=== PATIENT | male | born 1945 | race Caucasian/White ===

== ENCOUNTER 2022-01-09 10:54 | Inpatient (IN) ==
[2022-01-09] MEDS ORDERED: DOCUSATE SODIUM 100 MG CAPSULE PO PRN (11:27)
[2022-01-09] MEDS ORDERED: MAGNESIUM SULF RIDER 4 GM/100 ML PREMIX IV PRN (11:27)
[2022-01-09] MEDS ORDERED: ACETAMINOPHEN 325 MG TABLET PO PRN (11:27)
[2022-01-09] MEDS ORDERED: ZALEPLON 5 MG CAPSULE PO PRN (11:27)
[2022-01-09] MEDS ORDERED: POTASSIUM CHLORIDE 20 MEQ TABLET PO PRN (11:27)
[2022-01-09] MEDS ORDERED: ONDANSETRON 4 MG/2 ML VIAL IV PRN (11:27)
[2022-01-09] MEDS ORDERED: hydrALAZINE 20 MG/1 ML VIAL IV PRN (11:27)
[2022-01-09] MEDS ORDERED: ALUMINUM/MAGNES/SIMETH MAX STR 30 ML UDCUP PO PRN (11:27)
[2022-01-09] MEDS ORDERED: MAGNESIUM SULF RIDER 2 GM/50 ML PREMIX IV PRN (11:27)
[2022-01-09] MEDS ORDERED: AMIODARONE INJ 450 MG in DEXTROSE 5% 241 ML IV SCH ×2 (12:00→18:00)
[2022-01-09 14:13] LABS: Basophils % 0.4 % (0.0-0.8); Eosinophils # 0.1 10*3/uL (0.0-0.87); Eosinophils % 0.6 % (0.00-10.9); Hemoglobin 11.7 GM/DL (14.0-18.0); Immature Granulocytes % 0.5 %; Immature Granulocytes Absolute 0.04 #; Lymphocytes # 1.1 10*3/uL (1.4-4.0); Lymphocytes % 14.2 % (21.2-54.2); Mean Corpuscular HGB Conc 33.4 GM/DL (32-36); Mean Corpuscular Volume 95.4 FL (87-102); Mean Platelet Volume 10.6 FL (9.6-12.0); Monocytes # 0.6 10*3/uL (0.11-0.8); Monocytes % 8.3 % (1.7-12.7); Platelet Count 203 T/CUMM (130-400); Red Blood Count 3.67 MC/CUMM (3.8-5.5); Red Cell Distribution Width 13.1 % (9.3-17.3); White Blood Count 7.8 T/CUMM (4-12)
[2022-01-09] MEDS: SODIUM CHLORIDE 0.9% 1,000 ML IV SCH (14:16)
[2022-01-09 14:32] LABS: Albumin 3.3 G/DL (3.4-5.0); Bilirubin,Total 0.7 MG/DL (0.20-1.00); Calcium 9.1 MG/DL (8.5-10.1); Osmolality,Calculated 283.3 MOS/KG (273-304); Potassium 3.7 MMOL/L (3.5-5.1); Total Protein 7.4 G/DL (6.4-8.2)
[2022-01-09 14:38] LABS: Thyroid Stimulating Hormone 10.5 uIU/ml (0.358-3.74)
[2022-01-09] MEDS ORDERED: METOPROLOL TARTRATE 5 MG/5 ML VIAL IV PRN (14:45)
[2022-01-09] MEDS ORDERED: MAGNESIUM SULF RIDER 2 GM/50 ML PREMIX IV ONE (14:46)
[2022-01-09] MEDS ORDERED: POTASSIUM CHLORIDE 20 MEQ TABLET PO ONE (14:46)
[2022-01-09] MEDS: FAMOTIDINE 20 MG TABLET PO SCH (20:51)
[2022-01-10 03:53] LABS: Basophils % 0.6 % (0.0-0.8); Eosinophils # 0.2 10*3/uL (0.0-0.87); Eosinophils % 3.5 % (0.00-10.9); Hematocrit 27.5 VOL% (42.0-52.0); Hemoglobin 9.1 GM/DL (14.0-18.0); Immature Granulocytes % 0.2 %; Immature Granulocytes Absolute 0.01 #; Lymphocytes # 1.4 10*3/uL (1.4-4.0); Lymphocytes % 29.9 % (21.2-54.2); Mean Corpuscular HGB Conc 33.1 GM/DL (32-36); Mean Corpuscular Volume 96.2 FL (87-102); Mean Platelet Volume 10.5 FL (9.6-12.0); Monocytes # 0.5 10*3/uL (0.11-0.8); Monocytes % 10.4 % (1.7-12.7); Neutrophils % 55.4 % (38.7-73.9); Platelet Count 158 T/CUMM (130-400); Red Blood Count 2.86 MC/CUMM (3.8-5.5); Red Cell Distribution Width 12.9 % (9.3-17.3); White Blood Count 4.8 T/CUMM (4-12)
[2022-01-10 04:10] LABS: Calcium 8.5 MG/DL (8.5-10.1); Osmolality,Calculated 284.1 MOS/KG (273-304)
[2022-01-10 04:14] LABS: Risk Ratio 2.58; VLDL Cholesterol 13.6 MG/DL
[2022-01-10] MEDS: LEVOTHYROXINE 25 MCG TABLET PO SCH (06:01)
[2022-01-10] MEDS ORDERED: POLYETHYLENE GLYCOL POWDER 17 GM PACK PO SCH (08:00)
[2022-01-10] MEDS ORDERED: LORATADINE 10 MG TABLET PO SCH (08:00)
[2022-01-10] MEDS ORDERED: TAMSULOSIN 0.4 MG CAPSULE PO SCH (08:00)
[2022-01-10] MEDS ORDERED: PANTOPRAZOLE 40 MG TABLET PO SCH (09:00)
[2022-01-10] MEDS ORDERED: METOPROLOL SUCCINATE XL 25 MG TABLET PO SCH (09:00)
[2022-01-10] MEDS: FAMOTIDINE 20 MG TABLET PO SCH ×2 (10:08→20:38)
[2022-01-10] MEDS: SODIUM CHLORIDE 0.9% 1,000 ML IV SCH (10:14)
[2022-01-11 04:38] LABS: Basophils % 0.5 % (0.0-0.8); Eosinophils # 0.2 10*3/uL (0.0-0.87); Eosinophils % 3.3 % (0.00-10.9); Hematocrit 28.4 VOL% (42.0-52.0); Hemoglobin 9.5 GM/DL (14.0-18.0); Immature Granulocytes % 0.5 %; Immature Granulocytes Absolute 0.03 #; Lymphocytes # 1.3 10*3/uL (1.4-4.0); Lymphocytes % 23.2 % (21.2-54.2); Mean Corpuscular HGB Conc 33.5 GM/DL (32-36); Mean Platelet Volume 10.2 FL (9.6-12.0); Monocytes # 0.6 10*3/uL (0.11-0.8); Monocytes % 10.1 % (1.7-12.7); Neutrophils % 62.4 % (38.7-73.9); Platelet Count 164 T/CUMM (130-400); Red Blood Count 2.99 MC/CUMM (3.8-5.5); Red Cell Distribution Width 12.8 % (9.3-17.3); White Blood Count 5.5 T/CUMM (4-12)
[2022-01-11 04:58] LABS: Calcium 8.5 MG/DL (8.5-10.1); Osmolality,Calculated 274.7 MOS/KG (273-304); Potassium 3.6 MMOL/L (3.5-5.1)
[2022-01-11] MEDS: LEVOTHYROXINE 25 MCG TABLET PO SCH (06:01)
[2022-01-11 07:25] LABS: Folate 10.07 NG/ML (5.38-24.0); Vitamin B12 151 PG/ML (211-911)
[2022-01-11 07:47] LABS: Basophils % 0.6 % (0.0-0.8); Eosinophils # 0.2 10*3/uL (0.0-0.87); Eosinophils % 3.4 % (0.00-10.9); Hematocrit 29.2 VOL% (42.0-52.0); Hemoglobin 9.9 GM/DL (14.0-18.0); Immature Granulocytes % 0.4 %; Immature Granulocytes Absolute 0.02 #; Lymphocytes # 1.1 10*3/uL (1.4-4.0); Lymphocytes % 23.5 % (21.2-54.2); Mean Corpuscular HGB Conc 33.9 GM/DL (32-36); Mean Corpuscular Volume 94.8 FL (87-102); Mean Platelet Volume 9.9 FL (9.6-12.0); Monocytes # 0.4 10*3/uL (0.11-0.8); Monocytes % 8.4 % (1.7-12.7); Neutrophils % 63.7 % (38.7-73.9); Platelet Count 166 T/CUMM (130-400); Red Blood Count 3.08 MC/CUMM (3.8-5.5); Red Cell Distribution Width 12.8 % (9.3-17.3); White Blood Count 4.8 T/CUMM (4-12)
[2022-01-11] MEDS ORDERED: FERROUS SULFATE 325 MG TABLET PO SCH (09:00)
[2022-01-11] MEDS ORDERED: METOPROLOL SUCCINATE XL 50 MG TABLET PO SCH (09:00)
[2022-01-11] MEDS ORDERED: LOSARTAN 25 MG TABLET PO SCH (09:00)
[2022-01-11] MEDS ORDERED: CYANOCOBALAMIN 500 MCG TABLET PO SCH (09:00)
[2022-01-11 09:03] LABS: Sedimentation Rate-Westergren 58 MM/HR (0-20)
[2022-01-11 11:42] VITALS: BP 122/74
[2022-01-14 09:18] LABS: Hemoglobin A1 (Alkaline) 96.9 % (96.5-98.5); Hemoglobin A2 (Alkaline) 3.1 % (1.5-3.5)
== END 2022-01-11 12:50 | DRG 988 ==
LOC: N.TELEN 12:04 → N.TELES 13:23 → N.TELEN 13:43
PROVIDERS: ADMIT Internal Medicine Cardiovascular Disease; ATTEND Internal Medicine Cardiovascular Disease

== ENCOUNTER 2022-02-20 05:47 | Inpatient (IN) ==
[2022-02-20] MEDS ORDERED: ALVIMOPAN 12 MG CAPSULE PO ONE (06:00)
[2022-02-20] MEDS ORDERED: MIDAZOLAM 2 MG/2 ML VIAL ONE (06:13)
[2022-02-20] MEDS ORDERED: LIDOCAINE 2% 5 ML VIAL ONE (06:13)
[2022-02-20] MEDS ORDERED: propofoL 200 MG/20 ML VIAL IV ONE (06:13)
[2022-02-20] MEDS ORDERED: ROCURONIUM 50 MG/5 ML VIAL IV ONE ×2 (06:13→08:21)
[2022-02-20] MEDS ORDERED: fentaNYL 100 MCG/2 ML VIAL ONE ×2 (06:13→10:16)
[2022-02-20 06:30] LABS: Basophils % 0.6 % (0.0-0.8); Eosinophils # 0.3 10*3/uL (0.0-0.87); Eosinophils % 5.9 % (0.00-10.9); Hematocrit 32.4 VOL% (42.0-52.0); Hemoglobin 10.6 GM/DL (14.0-18.0); Immature Granulocytes % 0.4 %; Immature Granulocytes Absolute 0.02 #; Lymphocytes # 1.5 10*3/uL (1.4-4.0); Lymphocytes % 29.7 % (21.2-54.2); Mean Corpuscular HGB Conc 32.7 GM/DL (32-36); Mean Corpuscular Volume 97.6 FL (87-102); Mean Platelet Volume 10.1 FL (9.6-12.0); Monocytes # 0.5 10*3/uL (0.11-0.8); Monocytes % 9.6 % (1.7-12.7); Neutrophils % 53.8 % (38.7-73.9); Platelet Count 160 T/CUMM (130-400); Red Blood Count 3.32 MC/CUMM (3.8-5.5); Red Cell Distribution Width 13.2 % (9.3-17.3); White Blood Count 5.1 T/CUMM (4-12)
[2022-02-20 06:48] LABS: Osmolality,Calculated 275.7 MOS/KG (273-304); Potassium 3.7 MMOL/L (3.5-5.1)
[2022-02-20 06:51] LABS: Glucose,Urine (UA) Negative (Negative); Hyaline Casts,Urine 27 /LPF (0-3); Ketones,Urine Negative (Negative); Mucus,Urine Few /LPF (Occasional); Nitrite,Urine Positive (Negative); Protein,Urine 100 mg/dL (Negative); RBC,Urine 143 /HPF (0-4); Squamous Epithelial Cell,Urine Occasional /HPF (0-10); Urine Appearance Cloudy (Clear); Urine Color Yellow (Yellow); Urine Specific Gravity 1.025 (1.001-1.035)
[2022-02-20 06:52] LABS: Bilirubin,Urine Negative (Negative); Blood, Urine Large mg/dL (Negative)
[2022-02-20] MEDS ORDERED: cefTRIAXone 1,000 MG in SODIUM CHLORIDE 0.9% 100 ML IV ONE (06:55)
[2022-02-20] MEDS ORDERED: cefTRIAXone 1,000 MG VIAL ONE (06:56)
[2022-02-20] MEDS ORDERED: LACTATED RINGERS 1,000 ML IV SCH (07:00)
[2022-02-20] MEDS ORDERED: PHENYLEPHRINE 10 MG/1 ML VIAL IV ONE ×2 (07:49→09:47)
[2022-02-20] MEDS ORDERED: ePHEDrine 50 MG/ML VIAL ONE (08:12)
[2022-02-20] MEDS ORDERED: LACTATED RINGERS 1,000 ML IV ONE (08:22)
[2022-02-20 08:46] LABS: Bilirubin,Urine Negative (Negative); Blood, Urine Small mg/dL (Negative); Glucose,Urine (UA) Negative (Negative); Ketones,Urine Negative (Negative); Mucus,Urine Occasional /LPF (Occasional); Nitrite,Urine Positive (Negative); Protein,Urine Negative (Negative); RBC,Urine 7 /HPF (0-4); Urine Appearance Cloudy (Clear); Urine Color Yellow (Yellow); Urine pH 6.5 (4.5-8.0)
[2022-02-20] MEDS ORDERED: SUGAMMADEX 200 MG/2 ML VIAL IV ONE (10:27)
[2022-02-20] MEDS ORDERED: SODIUM CHLORIDE 0.9% 250 ML IV ONE (10:35)
[2022-02-20] MEDS ORDERED: SEVOFLURANE 1 UNIT/15 MINUTE INH ONE ×12 (10:44→10:59)
[2022-02-20] MEDS ORDERED: ESMOLOL 100 MG/10 ML VIAL IV ONE (10:44)
[2022-02-20] MEDS ORDERED: ONDANSETRON 4 MG/2 ML VIAL IV PRN ×2 (10:47→12:07)
[2022-02-20] MEDS ORDERED: ALBUMIN 5% 12.5 GM/250 ML VIAL IV ONE ×2 (11:19→12:14)
[2022-02-20] MEDS ORDERED: ACETAMINOPHEN INJ 1,000 MG/100 ML VIAL IV ONE ×2 (11:28→12:14)
[2022-02-20] MEDS ORDERED: MEPERIDINE 25 MG/1 ML VIAL ONE (11:50)
[2022-02-20] MEDS: MEPERIDINE 25 MG/1 ML VIAL IV PRN ×2 (11:55→16:35)
[2022-02-20] MEDS ORDERED: PROMETHAZINE INJ 25 MG in SODIUM CHLORIDE 0.9% 50 ML IV PRN (12:07)
[2022-02-20] MEDS ORDERED: HYDROmorphone 1 MG/1 ML SYRINGE IV PRN (12:07)
[2022-02-20] MEDS ORDERED: MORPHINE 10 MG/1 ML VIAL IV PRN (12:07)
[2022-02-20] MEDS ORDERED: diphenhydrAMINE 50 MG/1 ML VIAL IV PRN (12:07)
[2022-02-20 12:57] LABS: Basophils % 0.3 % (0.0-0.8); Eosinophils # 0.1 10*3/uL (0.0-0.87); Eosinophils % 0.5 % (0.00-10.9); Hematocrit 24.8 VOL% (42.0-52.0); Hemoglobin 8.1 GM/DL (14.0-18.0); Immature Granulocytes % 0.5 %; Immature Granulocytes Absolute 0.05 #; Lymphocytes # 0.9 10*3/uL (1.4-4.0); Lymphocytes % 8.9 % (21.2-54.2); Mean Corpuscular HGB Conc 32.7 GM/DL (32-36); Mean Corpuscular Volume 99.2 FL (87-102); Mean Platelet Volume 10.3 FL (9.6-12.0); Monocytes # 0.1 10*3/uL (0.11-0.8); Monocytes % 0.7 % (1.7-12.7); Neutrophils % 89.1 % (38.7-73.9); Platelet Count 124 T/CUMM (130-400); Red Cell Distribution Width 13.3 % (9.3-17.3); White Blood Count 9.5 T/CUMM (4-12)
[2022-02-20] MEDS: SODIUM CHLORIDE 0.45% 1,000 ML IV SCH ×3 (13:08→23:48)
[2022-02-20 13:12] LABS: Band Neutrophils 12 % (0-10); Lymphocytes 11 % (20-55); Myelocytes 1 %; Total Cells Counted 100
[2022-02-20 13:13] LABS: Platelet Estimate Decreased
[2022-02-20] MEDS ORDERED: PHENYLEPHRINE DRIP 40 MG/250 ML PREMIX IV ONE (13:28)
[2022-02-20] MEDS: PHENYLEPHRINE DRIP 40 MG/250 ML PREMIX IV PRN ×2 (13:30→20:25)
[2022-02-20] MEDS ORDERED: DOCUSATE/SENNA 50-8.6 MG TABLET PO PRN (14:15)
[2022-02-20] MEDS: FAMOTIDINE 20 MG TABLET PO SCH (20:28)
[2022-02-21] MEDS: PHENYLEPHRINE DRIP 40 MG/250 ML PREMIX IV PRN ×3 (02:05→19:02)
[2022-02-21] MEDS: MEPERIDINE 25 MG/1 ML VIAL IV PRN ×2 (02:10→15:55)
[2022-02-21 04:36] LABS: Basophils % 0.2 % (0.0-0.8); Eosinophils % 0.2 % (0.00-10.9); Hematocrit 23.9 VOL% (42.0-52.0); Hemoglobin 7.7 GM/DL (14.0-18.0); Immature Granulocytes % 0.7 %; Immature Granulocytes Absolute 0.09 #; Lymphocytes # 1.5 10*3/uL (1.4-4.0); Lymphocytes % 11.2 % (21.2-54.2); Mean Corpuscular HGB Conc 32.2 GM/DL (32-36); Mean Platelet Volume 10.3 FL (9.6-12.0); Monocytes # 1.1 10*3/uL (0.11-0.8); Monocytes % 7.8 % (1.7-12.7); Neutrophils % 79.9 % (38.7-73.9); Platelet Count 142 T/CUMM (130-400); Red Blood Count 2.39 MC/CUMM (3.8-5.5); Red Cell Distribution Width 13.5 % (9.3-17.3); White Blood Count 13.5 T/CUMM (4-12)
[2022-02-21 04:47] LABS: Osmolality,Calculated 279.4 MOS/KG (273-304); Potassium 4.1 MMOL/L (3.5-5.1)
[2022-02-21 05:13] LABS: Free T4 (Free Thyroxine) 1.35 NG/DL (0.76-1.46); Thyroid Stimulating Hormone 3.67 uIU/ml (0.358-3.74)
[2022-02-21] MEDS: LEVOTHYROXINE 25 MCG TABLET PO SCH (06:26)
[2022-02-21] MEDS: SODIUM CHLORIDE 0.45% 1,000 ML IV SCH ×3 (06:49→21:10)
[2022-02-21] MEDS ORDERED: LOSARTAN 25 MG TABLET PO SCH (08:00)
[2022-02-21] MEDS ORDERED: SODIUM CHLORIDE 0.9% 1,000 ML IV PRN (09:06)
[2022-02-21] MEDS: TAMSULOSIN 0.4 MG CAPSULE PO SCH (10:47)
[2022-02-21] MEDS: POLYETHYLENE GLYCOL POWDER 17 GM PACK PO SCH (10:48)
[2022-02-21] MEDS: FAMOTIDINE 20 MG TABLET PO SCH ×2 (10:48→21:09)
[2022-02-21] MEDS: LORATADINE 10 MG TABLET PO SCH (10:48)
[2022-02-21] MEDS: CYANOCOBALAMIN 500 MCG TABLET PO SCH (10:48)
[2022-02-21] MEDS: METOPROLOL SUCCINATE XL 50 MG TABLET PO SCH (10:56)
[2022-02-21] MEDS: cefTRIAXone 1,000 MG in SODIUM CHLORIDE 0.9% 100 ML IV SCH (21:09)
[2022-02-22] MEDS: PHENYLEPHRINE DRIP 40 MG/250 ML PREMIX IV PRN ×2 (04:56→18:22)
[2022-02-22 05:06] LABS: Basophils % 0.3 % (0.0-0.8); Eosinophils # 0.1 10*3/uL (0.0-0.87); Eosinophils % 0.8 % (0.00-10.9); Hematocrit 21.7 VOL% (42.0-52.0); Hemoglobin 7.3 GM/DL (14.0-18.0); Immature Granulocytes % 0.4 %; Immature Granulocytes Absolute 0.04 #; Lymphocytes # 1.5 10*3/uL (1.4-4.0); Lymphocytes % 13.8 % (21.2-54.2); Mean Corpuscular HGB Conc 33.6 GM/DL (32-36); Mean Platelet Volume 10.6 FL (9.6-12.0); Monocytes # 0.9 10*3/uL (0.11-0.8); Monocytes % 8.8 % (1.7-12.7); Neutrophils % 75.9 % (38.7-73.9); Platelet Count 118 T/CUMM (130-400); Red Blood Count 2.26 MC/CUMM (3.8-5.5); Red Cell Distribution Width 14.3 % (9.3-17.3); White Blood Count 10.5 T/CUMM (4-12)
[2022-02-22] MEDS: LEVOTHYROXINE 25 MCG TABLET PO SCH (05:52)
[2022-02-22] MEDS: POLYETHYLENE GLYCOL POWDER 17 GM PACK PO SCH (08:31)
[2022-02-22] MEDS: CYANOCOBALAMIN 500 MCG TABLET PO SCH (08:31)
[2022-02-22] MEDS: TAMSULOSIN 0.4 MG CAPSULE PO SCH (08:31)
[2022-02-22] MEDS: FAMOTIDINE 20 MG TABLET PO SCH ×2 (08:31→20:31)
[2022-02-22] MEDS: METOPROLOL SUCCINATE XL 50 MG TABLET PO SCH ×2 (08:31→13:40)
[2022-02-22] MEDS: LORATADINE 10 MG TABLET PO SCH (08:31)
[2022-02-22] MEDS: SODIUM CHLORIDE 0.45% 1,000 ML IV SCH (09:25)
[2022-02-22] MEDS: MEPERIDINE 25 MG/1 ML VIAL IV PRN (13:49)
[2022-02-22] MEDS ORDERED: ADENOSINE 6 MG/2 ML VIAL ONE (14:31)
[2022-02-22] MEDS ORDERED: AMIODARONE INJ 150 MG in DEXTROSE 5% 100 ML IV ONE (14:35)
[2022-02-22] MEDS ORDERED: AMIODARONE 150 MG/3 ML VIAL ONE (14:35)
[2022-02-22] MEDS ORDERED: AMIODARONE INJ 450 MG in DEXTROSE 5% 241 ML IV SCH ×2 (15:00→21:00)
[2022-02-22 16:48] LABS: Hematocrit 25.5 VOL% (42.0-52.0); Hemoglobin 8.3 GM/DL (14.0-18.0)
[2022-02-22] MEDS: cefTRIAXone 1,000 MG in SODIUM CHLORIDE 0.9% 100 ML IV SCH (20:31)
[2022-02-23] MEDS: SODIUM CHLORIDE 0.45% 1,000 ML IV SCH ×3 (02:25→15:06)
[2022-02-23 05:06] LABS: Basophils % 0.3 % (0.0-0.8); Eosinophils # 0.3 10*3/uL (0.0-0.87); Eosinophils % 3.4 % (0.00-10.9); Hematocrit 25.9 VOL% (42.0-52.0); Hemoglobin 8.5 GM/DL (14.0-18.0); Immature Granulocytes % 0.4 %; Immature Granulocytes Absolute 0.03 #; Lymphocytes # 1.6 10*3/uL (1.4-4.0); Lymphocytes % 20.9 % (21.2-54.2); Mean Corpuscular HGB Conc 32.8 GM/DL (32-36); Mean Corpuscular Volume 96.6 FL (87-102); Mean Platelet Volume 10.6 FL (9.6-12.0); Monocytes # 0.8 10*3/uL (0.11-0.8); Monocytes % 10.4 % (1.7-12.7); Neutrophils % 64.6 % (38.7-73.9); Platelet Count 106 T/CUMM (130-400); Red Blood Count 2.68 MC/CUMM (3.8-5.5); Red Cell Distribution Width 14.3 % (9.3-17.3); White Blood Count 7.4 T/CUMM (4-12)
[2022-02-23 05:30] LABS: Albumin 2.4 G/DL (3.4-5.0); Bilirubin,Total 0.7 MG/DL (0.20-1.00); Osmolality,Calculated 273.7 MOS/KG (273-304); Potassium 3.7 MMOL/L (3.5-5.1); Total Protein 5.7 G/DL (6.4-8.2)
[2022-02-23 05:33] LABS: Platelet Estimate Normal
[2022-02-23] MEDS: LEVOTHYROXINE 25 MCG TABLET PO SCH (05:57)
[2022-02-23] MEDS: LORATADINE 10 MG TABLET PO SCH (08:26)
[2022-02-23] MEDS: TAMSULOSIN 0.4 MG CAPSULE PO SCH (08:26)
[2022-02-23] MEDS: CYANOCOBALAMIN 500 MCG TABLET PO SCH (08:26)
[2022-02-23] MEDS: METOPROLOL SUCCINATE XL 50 MG TABLET PO SCH (08:26)
[2022-02-23] MEDS: POLYETHYLENE GLYCOL POWDER 17 GM PACK PO SCH (08:26)
[2022-02-23] MEDS: FAMOTIDINE 20 MG TABLET PO SCH ×2 (08:26→20:41)
[2022-02-23] MEDS: AMIODARONE 200 MG TABLET PO SCH ×2 (11:35→20:41)
[2022-02-23] MEDS: cefTRIAXone 1,000 MG in SODIUM CHLORIDE 0.9% 100 ML IV SCH (22:47)
[2022-02-24] MEDS: SODIUM CHLORIDE 0.45% 1,000 ML IV SCH ×3 (03:06→18:04)
[2022-02-24 05:22] LABS: Basophils % 0.2 % (0.0-0.8); Eosinophils # 0.2 10*3/uL (0.0-0.87); Eosinophils % 3.2 % (0.00-10.9); Hematocrit 23.9 VOL% (42.0-52.0); Hemoglobin 7.8 GM/DL (14.0-18.0); Immature Granulocytes % 0.6 %; Immature Granulocytes Absolute 0.03 #; Lymphocytes % 22.3 % (21.2-54.2); Mean Corpuscular HGB Conc 32.6 GM/DL (32-36); Mean Platelet Volume 10.8 FL (9.6-12.0); Monocytes # 0.4 10*3/uL (0.11-0.8); Monocytes % 7.9 % (1.7-12.7); Neutrophils % 65.8 % (38.7-73.9); Platelet Count 114 T/CUMM (130-400); Red Blood Count 2.49 MC/CUMM (3.8-5.5); Red Cell Distribution Width 13.8 % (9.3-17.3); White Blood Count 4.7 T/CUMM (4-12)
[2022-02-24 05:50] LABS: Calcium 8.1 MG/DL (8.5-10.1); Osmolality,Calculated 278.3 MOS/KG (273-304); Potassium 3.4 MMOL/L (3.5-5.1)
[2022-02-24] MEDS: LEVOTHYROXINE 25 MCG TABLET PO SCH (05:56)
[2022-02-24 06:33] LABS: Anisocytosis Slight; Platelet Estimate Adequate
[2022-02-24] MEDS ORDERED: POTASSIUM CHLORIDE 20 MEQ TABLET PO ONE (07:40)
[2022-02-24 08:08] LABS: % Iron Saturation 28.1 % (18-50); Ferritin 404.9 ng/mL (26-388)
[2022-02-24] MEDS: AMIODARONE 200 MG TABLET PO SCH ×2 (08:59→21:51)
[2022-02-24] MEDS: TAMSULOSIN 0.4 MG CAPSULE PO SCH (08:59)
[2022-02-24] MEDS: FAMOTIDINE 20 MG TABLET PO SCH ×2 (09:00→21:51)
[2022-02-24] MEDS: LORATADINE 10 MG TABLET PO SCH (09:00)
[2022-02-24] MEDS: CYANOCOBALAMIN 500 MCG TABLET PO SCH (09:00)
[2022-02-24] MEDS: POLYETHYLENE GLYCOL POWDER 17 GM PACK PO SCH (09:00)
[2022-02-24] MEDS: METOPROLOL SUCCINATE XL 50 MG TABLET PO SCH (09:02)
[2022-02-24] MEDS ORDERED: MAGNESIUM SULF RIDER 2 GM/50 ML PREMIX IV ONE (10:25)
[2022-02-24 12:22] LABS: Hematocrit 24.8 VOL% (42.0-52.0); Hemoglobin 8.3 GM/DL (14.0-18.0)
[2022-02-24] MEDS: FERROUS SULFATE 325 MG TABLET PO SCH (21:51)
[2022-02-24] MEDS: SULFAMETHOX/TRIMETHOPRIM 800-160 MG TABLET PO SCH (21:51)
[2022-02-25] MEDS: SODIUM CHLORIDE 0.45% 1,000 ML IV SCH (04:24)
[2022-02-25] MEDS: LEVOTHYROXINE 25 MCG TABLET PO SCH (05:20)
[2022-02-25 06:54] LABS: Basophils % 0.8 % (0.0-0.8); Eosinophils # 0.2 10*3/uL (0.0-0.87); Eosinophils % 3.1 % (0.00-10.9); Hematocrit 24.6 VOL% (42.0-52.0); Hemoglobin 8.2 GM/DL (14.0-18.0); Immature Granulocytes % 0.6 %; Immature Granulocytes Absolute 0.03 #; Lymphocytes # 1.2 10*3/uL (1.4-4.0); Lymphocytes % 25.6 % (21.2-54.2); Mean Corpuscular HGB Conc 33.3 GM/DL (32-36); Mean Platelet Volume 10.1 FL (9.6-12.0); Monocytes # 0.4 10*3/uL (0.11-0.8); Monocytes % 8.9 % (1.7-12.7); Platelet Count 132 T/CUMM (130-400); Red Blood Count 2.59 MC/CUMM (3.8-5.5); Red Cell Distribution Width 13.4 % (9.3-17.3); White Blood Count 4.9 T/CUMM (4-12)
[2022-02-25 07:22] LABS: Band Neutrophils 1 % (0-10); Eosinophils 3 % (0-10); Lymphocytes 23 % (20-55); Total Cells Counted 100
[2022-02-25 07:23] LABS: Macrocytosis Slight; Platelet Estimate Adequate
[2022-02-25 07:30] LABS: Osmolality,Calculated 277.3 MOS/KG (273-304); Potassium 3.3 MMOL/L (3.5-5.1)
[2022-02-25] MEDS ORDERED: POTASSIUM CHLORIDE 20 MEQ TABLET PO ONE (07:47)
[2022-02-25] MEDS: METOPROLOL SUCCINATE XL 50 MG TABLET PO SCH (08:50)
[2022-02-25] MEDS: TAMSULOSIN 0.4 MG CAPSULE PO SCH (08:50)
[2022-02-25] MEDS: LORATADINE 10 MG TABLET PO SCH (08:50)
[2022-02-25] MEDS: AMIODARONE 200 MG TABLET PO SCH (08:50)
[2022-02-25] MEDS: CYANOCOBALAMIN 500 MCG TABLET PO SCH (08:51)
[2022-02-25] MEDS: POLYETHYLENE GLYCOL POWDER 17 GM PACK PO SCH (08:51)
[2022-02-25] MEDS: FERROUS SULFATE 325 MG TABLET PO SCH (08:51)
[2022-02-25] MEDS: FAMOTIDINE 20 MG TABLET PO SCH (08:51)
[2022-02-25] MEDS: SULFAMETHOX/TRIMETHOPRIM 800-160 MG TABLET PO SCH (08:51)
[2022-02-25] MEDS ORDERED: CHOLECALCIFEROL 1,000 UNIT TABLET PO SCH (09:00)
[2022-02-25 15:41] VITALS: BP 114/61
[2022-02-27 14:55] LABS: Stone Source Kidney
== END 2022-02-25 12:15 | DRG 694 ==
LOC: N.RAD 05:47 → N.SDSINP 05:49 → N.ICU 13:55 → N.TELES 02-23 17:52
PROVIDERS: ADMIT Urology; ATTEND Urology